=== PATIENT | male | born 1960 | race Caucasian/White ===

== ENCOUNTER 2020-08-05 17:14 | Emergency (ER) | payer BC ==
[~2020-08-05] VITALS: Ht 177.8 cm; Wt 83.9 kg
[2020-08-05 17:19] VITALS: BP_SYST 172
--- NOTE | 2020-08-05 17:22 | NUR ---
Patient to ER bed 06 to gown for evaluation. Side rails up.
--- NOTE | 2020-08-05 17:25 | NUR ---
Pt brought by self, ambulatory, A&Ox4, pt presents to ER with swelling/pain on R testicle since yesterday, pt afebrile , denies pain with urination , skin pink and warm ,skin pink and warm , cap refill <3, VSS.
--- NOTE | 2020-08-05 17:31 | NUR ---
Dr Doherty evaluating patient at bedside
--- NOTE | 2020-08-05 17:45 | NUR ---
PT TO [facility] BY WHEELCHAIR
[2020-08-05 17:57] LABS: BILIRUBIN,URINE NEGATIVE (NEGATIVE); CLARITY/URINE CLEAR (CLEAR); COLOR,URINE YELLOW (YELLOW); GLUCOSE,URINE NEGATIVE (NEGATIVE); KETONES,URINE NEGATIVE (NEGATIVE); LEUKOCYTE ESTERASE ,URINE NEGATIVE (NEGATIVE); NITRITE, URINE NEGATIVE (NEGATIVE); PROTEIN URINE NEGATIVE (NEGATIVE); UROBILINOGEN,URINE 0.2 (0.2-1.0)
[2020-08-05 18:04] LABS: BLOOD, URINE TRACE (NEGATIVE)
--- NOTE | 2020-08-05 18:05 | NUR ---
PT BACK FROM [facility], LAB AT BEDSIDE FOR BLOOD DRAW
[2020-08-05 18:12] LABS: BACTERIA,URINE None Seen /HPF (None Seen); CALCIUM PHOSPHATE CRYSTALS,UR None Seen /HPF (None Seen); RBC,URINE 0-3 /HPF (0-3); TRICHOMONAS,URINE None Seen /HPF (None Seen); WBC,URINE NONE SEEN /HPF (0-3); YEAST,URINE None Seen /HPF (None Seen)
[2020-08-05 18:31] LABS: BASOPHILS % (AUTO) 0.6 % (0.0-2.0); EOSINOPHILS # (AUTO) 0.3 K/uL (0.0-0.4); HEMATOCRIT 48.8 % (36-54); HEMOGLOBIN 16.9 g/dL (14.0-18.0); LYMPHOCYTES # (AUTO) 2.1 K/uL (1.0-5.5); LYMPHOCYTES % (AUTO) 24.9 % (20.5-51.5); MEAN CORPUSCULAR HEMOGLOBIN 31 pg (27-31); MEAN CORPUSCULAR HGB CONC 35 % (32-36); MEAN CORPUSCULAR VOLUME 89 fL (79.0-98.0); MONOCYTES # (AUTO) 0.9 K/uL (0.0-1.0); NEUTROPHILS # (AUTO) 5.2 K/uL (1.8-7.7); NEUTROPHILS % (AUTO) 60.5 % (40.0-70.0); PLATELET COUNT (AUTO) 170 K/uL (130-430); RED BLOOD CELL COUNT(AUTO) 5.47 MIL/uL (4.2-6.2); WHITE BLOOD COUNT (AUTO) 8.5 K/uL (4.8-10.8)
--- NOTE | 2020-08-05 18:45 | NUR ---
PT RESTING QUIETLY IN NO DISTRESS AND IS AWAITING DISPOSITION.
[2020-08-05 18:54] LABS: CALCIUM 9.4 mg/dL (8.4-11.0); POTASSIUM 3.3 mmol/L (3.5-5.1)
--- NOTE | 2020-08-05 19:09 | NUR ---
Report given to VANDANA Stoll who will assume care.
--- NOTE | 2020-08-05 19:30 | NUR ---
Patient given written and verbal discharge instructions and verbalizes understanding. ER MD discussed with patient the results and treatment provided. Patient in stable condition. ID arm band removed. Rx of Motrin and Macrobid given. Patient educated on pain management and to follow up with PMD. Pain Scale 3/10. Opportunity for questions provided and answered. Medication side effect fact sheet provided.
[2020-08-05 19:31] VITALS: BP_SYST 155
[2020-08-05 19:36] LABS: TOTAL BILIRUBIN 0.7 mg/dL (0.0-1.0)
[2020-08-05 19:38] LABS: ALBUMIN 4.3 g/dL (3.4-4.8)
== END 2020-08-05 19:31 | disposition home or self-care (01) ==
LOC: SED 17:14
DX: N45.1 Epididymitis (principal); I10 Essential (primary) hypertension
CPT/HCPCS: 36415; 76870-TC; 80053; 81000-TC; 85025; 86140; 99284